=== PATIENT | female | born 1975 | race Caucasian/White ===

== ENCOUNTER 2021-03-26 21:20 | Emergency (ER) | payer BC ==
[~2021-03-26] VITALS: Ht 170.2 cm; Wt 90.7 kg
[2021-03-26] MEDS ORDERED: ONDANSETRON HCL/PF 4 MG/2 ML VIAL ONE (22:00)
[2021-03-26] MEDS ORDERED: TRAMADOL HCL 50 MG TABLET ONE (22:00)
[2021-03-26] MEDS ORDERED: IV NS 0.9% 1,000 ML BAG IV ONE (22:00)
[2021-03-26] MEDS ORDERED: ONDANSETRON HCL/PF 4 MG/2 ML VIAL IVP ONE (22:00)
[2021-03-26] MEDS ORDERED: TRAMADOL HCL 50 MG TABLET PO ONE (22:00)
[2021-03-26 22:13] LABS: BASOPHILS % (AUTO) 0.4 % (0.0-2.0); EOSINOPHILS % (AUTO) 1.6 % (0.0-6.0); HEMATOCRIT 43 % (33-45); HEMOGLOBIN 13.8 g/dL (11.5-14.8); LYMPHOCYTES # (AUTO) 2.1 /CMM (0.8-4.8); LYMPHOCYTES % (AUTO) 29.8 % (20.0-44.0); MEAN CORPUSCULAR HGB CONC 32 g/dl (31.0-36.0); MEAN CORPUSCULAR VOLUME 82 fL (82-100); MONOCYTES # (AUTO) 0.5 /CMM (0.1-1.30); MONOCYTES % (AUTO) 6.8 % (2.0-12.0); NEUTROPHILS # (AUTO) 4.3 /CMM (1.8-8.9); NEUTROPHILS % (AUTO) 61.4 % (43.0-81.0); PLATELET COUNT (AUTO) 208 /CMM (150-450); RED BLOOD CELL COUNT(AUTO) 5.18 MIL/uL (4.0-5.2)
--- NOTE | 2021-03-26 22:19 | NUR ---
PT TO ER BED 2 C/O LUQ ABDOMINAL PAIN FOR 2 MONTHS SHARP, INTERMITTEN. PATIENT IS ANXIOUS BECAUSE SHE IS AFRAID THAT SHE IS IN THE HOSPITAL, AND HAS 2 KIDS. PATIENT IS ALERT AND ORIENTED x4. DENIES SOB. CONNECTED TO THE [address] PATROL.
[2021-03-26 22:20] LABS: CALCIUM, SERUM 9.2 mg/dL (8.5-10.1); CARBON DIOXIDE 26 mmol/L (21-32); CHLORIDE 106 mmol/L (98-107); CREATININE 0.9 mg/dL (0.6-1.3); GLUCOSE 106 mg/dL (74-106); POTASSIUM 3.7 mmol/L (3.5-5.1); SODIUM SERUM 142 mmol/L (136-145); UREA NITROGEN, BLOOD 13 mg/dL (7-18)
--- NOTE | 2021-03-26 22:20 | NUR ---
BLOOD COLLECTED AND SENT TO THE LAB.
[2021-03-26] MEDS ORDERED: LORAZEPAM INJ 2 MG/ML VIAL ONE (22:23)
[2021-03-26 22:26] LABS: ALANINE AMINOTRANSFERASE 22 U/L (12-78); ALBUMIN 3.8 g/dL (3.4-5.0); ALKALINE PHOSPHATASE 70 U/L (46-116); ASPARTATE AMINOTRANSFERASE 12 U/L (15-37); BILIRUBIN,DIRECT 0.1 mg/dL (0.0-0.2); BILIRUBIN,TOTAL 0.4 mg/dL (0.2-1.0); LIPASE 185 U/L (73-393); TOTAL PROTEIN, SERUM 7.4 g/dL (6.4-8.2)
[2021-03-26] MEDS ORDERED: LORAZEPAM INJ 2 MG/ML VIAL IV ONE (22:30)
--- NOTE | 2021-03-26 22:34 | NUR ---
PATIENT RETURNED FROM XR OF RIBS
[2021-03-26 23:47] LABS: BILIRUBIN,URINE Negative (NEGATIVE); COLOR,URINE YELLOW (YELLOW); LEUKOCYTE ESTERASE ,URINE Negative (NEGATIVE); NITRITE, URINE Negative (NEGATIVE); PROTEIN,URINE Negative (NEGATIVE); UGLUCOSE Negative (NEGATIVE); UROBILINOGEN,URINE 0.2 EU/dL (0.2)
[2021-03-26 23:51] LABS: BACTERIA,URINE Rare /HPF (None Seen); SQUAMOUS EPITHELIAL CELL,UR Few /HPF (None Seen); WBC,URINE NONE SEEN /HPF (0-3)
[2021-03-27] MEDS ORDERED: IBUP-1955 PO (00:06)
--- NOTE | 2021-03-27 00:31 | NUR ---
PT IS MEDICALLY STABLE FOR D/C. IV removed. Catheter intact and site benign. Pressure and 4x4 applied to site. No bleeding noted.Patient discharged to home in stable condition. Rx and Written and verbal after care instructions given. Patient verbalizes understanding of instruction.
[2021-03-27 00:33] VITALS: BP 131/78
== END 2021-03-27 00:35 | disposition home or self-care (01) ==
LOC: ER 21:24
DX: R07.81 Pleurodynia (principal); R00.2 Palpitations; Z98.890 Other specified postprocedural states; Z88.0 Allergy status to penicillin; Z79.899 Other long term (current) drug therapy
CPT/HCPCS: 36415; 71100; 80048; 80076; 81001; 83690; 84484; 84703; 85025; 93005; 96361; 96374; 99285; J2060; J7030; J2405